=== PATIENT | male | born 1980 | race Hispanic/Latino ===

== ENCOUNTER 2016-12-23 21:35 | Emergency (ER) | payer BC, OTHER ==
--- NOTE | 2016-12-23 21:48 | EDM.PDOC ---
ED HISTORY OF PRESENT ILLNESS - General Chief Complaint: Cardiovascular Problem Stated Complaint: FEET SWOLLEN Time Seen by Provider: 12/23/16 21:43 Source of Information: Reports: Patient History Limitations: Reports: No limitations - History of Present Illness INITIAL COMMENTS - FREE TEXT/NARRATIVE: few days h/o worsening leg swelling, denies trauma, occ' SOB, no chest pain. - Related Data Allergies/ADRs: Allergies Allergy/AdvReac Type Severity Reaction Status Date / Time No Known Allergies Allergy Verified 12/23/16 21:40 Home Meds: Home Meds . [No Known Home Meds] 06/26/15 [History] Past Medical History - Past Health History Medical/Surgical History: Denies Medical/Surgical History Social & Family History - Tobacco Use Smoking Status *Q: Never Smoker - Caffeine Use Caffeine Use: Reports: Soda - Recreational Drug Use Recreational Drug Use: No ED ROS GENERAL - Review of Systems Review Of Systems: ROS reveals no pertinent complaints other than HPI. ED EXAM, GENERAL - Physical Exam Exam: See Below Exam Limited By: No limitations General Appearance: alert, WD/WN, no apparent distress Ears: hearing grossly normal Throat/Mouth: Normal voice, No airway compromise Head: atraumatic Neck: supple, non-tender Respiratory/Chest: no respiratory distress Cardiovascular: regular rate, rhythm GI/Abdominal: soft, non tender Extremities: pedal edema, other (2 bilateral+) Neurological: alert, oriented, normal cognition, normal gait, no motor/sensory deficits Psychiatric: normal affect, normal mood Skin Exam: Warm, Dry Lymphatic: no adenopathy Course - Vital Signs Last Recorded V/S: Last Vital Signs Temp 36.3 C 12/23/16 21:41 Pulse 117 H 12/23/16 21:41 Resp 20 12/23/16 21:41 BP 102/71 12/23/16 21:41 Pulse Ox 100 12/23/16 21:41 - Orders/Labs/Meds Orders: Active Orders 24 hr Category Date Time Status EKG 12 Lead [EKG Documentation Completion] [RC] STAT Care 12/23/16 22:17 Active Potassium Chloride [KCl 10 MEQ in Water 100 ML] 10 meq Med 12/23/16 22:44 Ordered Premix Bag 1 bag IV ONETIME Medication Orders Potassium Chloride 10 meq/ (Premix) 100 mls @ 100 mls/hr IV ONETIME ONE Stop: 12/23/16 23:43 Last Admin: 12/23/16 22:50 Dose: 100 mls/hr Labs: Laboratory Tests 12/23/16 12/23/16 12/23/16 Range/Units 21:52 21:52 21:52 WBC 7.9 (5.0-10.0) 10^3/uL RBC 4.77 (4.6-6.2) 10^6/uL Hgb 13.2 L (14.0-18.0) g/dL Hct 40.4 (40.0-54.0) % MCV 84.7 (80-100) fL MCH 27.7 (27.0-34.0) pg MCHC 32.7 L (33.0-35.0) g/dL Plt Count 380 (150-450) 10^3/uL Neut % (Auto) 74.3 (42.2-75.2) % Lymph % (Auto) 16.3 L (20.5-50.1) % [place] % (Auto) 6.2 (2-8) % Eos % (Auto) 2.7 (1.0-3.0) % Baso % (Auto) 0.5 (0.0-1.0) % Sodium 134 L (135-145) mmol/L Potassium 2.9 L (3.6-5.0) mmol/L Chloride 98 L (101-111) mmol/L Carbon Dioxide 25.0 (21.0-31.0) mmol/L Anion Gap 13.9 BUN 43 H (7-18) mg/dL Creatinine 2.4 H (0.6-1.3) mg/dL Est Cr Clr Drug Dosing 38.40 mL/min Estimated GFR (MDRD) 31 BUN/Creatinine Ratio 17.91 Glucose 130 H (74-105) mg/dL Calcium 8.6 (8.4-10.2) mg/dl Total Bilirubin 1.7 H (0.2-1.0) mg/dL AST 37 (10-42) IU/L ALT 35 (10-60) IU/L Alkaline Phosphatase 86 (42-121) IU/L Troponin I 0.04 H* (0.00-0.02) ng/ml B-Natriuretic Peptide 2050 H (0-100) pg/ml Total Protein 6.7 (6.7-8.2) g/dl Albumin 3.3 (3.2-5.5) g/dl Globulin 3.4 Albumin/Globulin Ratio 0.97 Meds: Medications Generic Name Dose Route Start Last Admin Trade Name Freq PRN Reason Stop Dose Admin Potassium Chloride 10 meq/ 100 mls @ 100 mls/hr 12/23/16 22:44 12/23/16 22:50 Premix IV 12/23/16 23:43 100 mls/hr ONETIME ONE Administration Discontinued Medications Generic Name Dose Route Start Last Admin Trade Name Freq PRN Reason Stop Dose Admin Furosemide 20 mg 12/23/16 22:43 12/23/16 22:49 Lasix IVPUSH 12/23/16 22:44 20 mg ONETIME ONE Administration - Re-Assessments/Exams Free Text/Narrative Re-Assessment/Exam: 12/23/16 22:54 results discussed with Pt and case discussed with Dr Chin @ who kindly accepted Pt. Departure - Departure Time of Disposition: 22:55 Disposition: DC/Tfer to [facility] 02 Reason for Transfer *Q: Other Condition: good Clinical Impression: Elevated troponin, Elevated brain natriuretic peptide (BNP) level, Hypokalemia , Renal insufficiency, Pulmonary hypertensive venous disease CHF (congestive heart failure) Qualifiers: Congestive heart failure type: unspecified congestive heart failure type Congestive heart failure chronicity: acute Qualified Code(s): I50.9 - Heart failure, unspecified Forms: Interfacility Transfer EMTALA - My Orders Last 24 Hours: My Active Orders 12/23/16 22:17 EKG 12 Lead [EKG Documentation Completion] [RC] STAT 12/23/16 22:44 Potassium Chloride [KCl 10 MEQ in Water 100 ML] 10 meq Premix Bag 1 bag IV ONETIME - Assessment/Plan Last 24 Hours: My Active Orders 12/23/16 22:17 EKG 12 Lead [EKG Documentation Completion] [RC] STAT 12/23/16 22:44 Potassium Chloride [KCl 10 MEQ in Water 100 ML] 10 meq Premix Bag 1 bag IV ONETIME
[2016-12-23] MEDS ORDERED: Furosemide 20 MG/2 ML VIAL IVPUSH ONE (22:43)
[2016-12-23] MEDS ORDERED: Potassium Chloride 10 MEQ in Premix Bag 1 BAG IV ONE (22:44)
[2016-12-23] MEDS ORDERED: Nitroglycerin 0.4 MG Tab.SL SL ONE (22:58)
[2016-12-23] MEDS ORDERED: Metoprolol Tartrate 5 MG/5 ML SDV IVPUSH ONE ×2 (23:00→23:39)
[2016-12-23] MEDS ORDERED: LORazepam 2 MG/ML Syringe IVPUSH ONE (23:24)
[2016-12-23 23:43] VITALS: BP 193/151
--- NOTE | 2016-12-25 10:31 | EKG ---
12/23/2016 - DOTTIE FONTENOT - This 12-lead EKG shows sinus tachycardia with a ventricular rate of 113. Normal axis. Borderline prolonged QT interval. No acute ST-segment or T-wave changes. [facility] /[id number]
== END 2016-12-23 23:50 ==
LOC: DL.ED 21:35
DX: I50.9 Heart failure, unspecified (principal); I27.0 Primary pulmonary hypertension; N28.9 Disorder of kidney and ureter, unspecified; E87.6 Hypokalemia
CPT/HCPCS: 36415; 71020; 80053; 81001; 83880; 84484; 85025; 93005; 96365; 96375; 96376; 99285; J1940; J2060; J3480; J3490

== ENCOUNTER 2017-01-01 14:52 | Emergency (ER) | payer OTHER ==
[2017-01-01] MEDS ORDERED: Sodium Chloride 0.9% 10 ML Syringe FLUSH PRN (15:10)
[2017-01-01 15:55] LABS: CHLORIDE,CL 99 mmol/L (101-111); SODIUM,NA 134 mmol/L (135-145)
[2017-01-01 16:18] VITALS: BP 97/74
--- NOTE | 2017-01-01 17:07 | EDM.PDOC ---
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 Patient began feeling lightheaded and nauseated due to the heat. Then he felt cold. He denies chest pain, SOB or syncope. Admits to near syncope with "tunnel vision" for a few seconds, during which time co-worker reported patient seemed confused. Once out of the hot kitchen he quickly felt completely back to normal. Patient admitted at [facility] for CHF from 12/24/16 to . He has appointment with otolaryngology physician in 4 days. Patient symptom free on arrival to ER. Symptom Onset Date: 01/01/17 Event Occurred (Where): work Event (Witnessed/Unwitnessed): witnessed Location: Reports: generalized Severity: moderate Pre Event Symptom(s): Reports: no other symptoms Event Symptoms: Reports: no other symptoms - Related Data Allergies/ADRs: Allergies Allergy/AdvReac Type Severity Reaction Status Date / Time No Known Allergies Allergy Verified 01/01/17 16:06 Home Meds: Home Meds Aspirin/Calcium Carbonate/Mag [Aspirin Buffered 325 mg Tab] 325 mg PO DAILY 02/12 [History] Carvedilol 6.25 mg PO BID 01/01/17 [History] Furosemide 20 mg PO DAILY 01/01/17 [History] NIFEdipine [Nifedipine ER] 60 mg PO 01/01/17 [History] Potassium Chloride 40 meq PO DAILY 01/01/17 [History] Spironolactone 50 mg PO DAILY 01/01/17 [History] Past Medical History Cardiovascular History: Reports: Heart Failure, Hypertension (malignant) Genitourinary History: Reports: Other (see below) (chronic kidney disease.) Social & Family History - Family History Family Medical History: Noncontributory - Tobacco Use Smoking Status *Q: Never Smoker - Caffeine Use Caffeine Use: Reports: Soda - Recreational Drug Use Recreational Drug Use: No - Living Situation & Occupation Living situation: Reports: , with family Occupation: employed ED ROS GENERAL - Review of Systems Review Of Systems: ROS reveals no pertinent complaints other than HPI. - Physical Exam Exam: See Below Exam Limited By: No limitations General Appearance: alert, WD/WN, no apparent distress Eye Exam: bilateral eye: normal inspection Ears: normal external exam, normal canal, hearing grossly normal, normal TMs Nose: normal inspection, normal mucosa, no blood Throat/Mouth: Normal inspection, Normal lips, Normal teeth, Normal gums, Normal oropharynx, Normal voice, No airway compromise Head Exam: atraumatic, normocephalic Neck: normal inspection, supple, non-tender, full range of motion Respiratory/Chest: no respiratory distress, lungs clear, normal breath sounds, no accessory muscle use, chest non-tender Cardiovascular: normal peripheral pulses, regular rate, rhythm, no edema, no gallop, no JVD, no murmur, no rub GI/Abdominal: normal bowel sounds, soft, non tender, no organomegaly, no distention, no abnormal bruit, no mass Neuro Exam (Abbreviated): alert, oriented, CN II-XII intact, normal cognition, normal gait, normal reflexes, no motor/sensory deficits Back Exam: normal inspection, full range of motion, NT Extremities: normal inspection, normal range of motion, non-tender, no pedal edema, normal capillary refill Psychiatric: normal affect, normal mood Skin Exam: Warm, Dry, Intact, Normal color, No rash EKG INTERPRETATION EKG Date: 01/01/17 Time: 15:10 Rhythm: other (sinus rhythm) Rate (beats/min): 64 [place]: normal P-wave: present QRS: other (left ventricular hypertrophy) ST-T: normal QT: normal Course - Vital Signs Last Recorded V/S: Last Vital Signs Temp 36.3 C 01/01/17 16:08 Pulse 70 01/01/17 16:08 Resp 18 01/01/17 16:08 BP 97/74 01/01/17 16:08 Pulse Ox 100 01/01/17 16:08 - Orders/Labs/Meds Orders: Active Orders 24 hr Category Date Time Status Patient Status Manage Transfer [TRANSFER] Routine ADT 01/01/17 15:47 Ordered EKG 12 Lead [EKG Documentation Completion] [RC] STAT Care 01/01/17 15:09 Active Peripheral IV Care [RC] . DIRECTED Care 01/01/17 15:10 Active Chest 1V Frontal [CR] Stat Exams 01/01/17 15:09 Taken Head wo Cont [CT] Urgent Exams 01/01/17 15:10 Taken Sodium Chloride 0.9% [Saline Flush] Med 01/01/17 15:10 Active 10 ml FLUSH ASDIRECTED PRN Peripheral IV Insertion Adult [OM.PC] Stat Oth 01/01/17 15:08 Ordered Medication Orders Sodium Chloride (Saline Flush) 10 ml FLUSH ASDIRECTED PRN PRN Reason: Keep Vein Open Last Admin: 01/01/17 16:24 Dose: 10 ml Labs: Laboratory Tests 01/01/17 01/01/17 01/01/17 Range/Units 15:31 15:31 15:31 WBC 8.0 (5.0-10.0) 10^3/uL RBC 5.01 (4.6-6.2) 10^6/uL Hgb 14.0 (14.0-18.0) g/dL Hct 43.4 (40.0-54.0) % MCV 86.6 (80-100) fL MCH 27.9 (27.0-34.0) pg MCHC 32.3 L (33.0-35.0) g/dL Plt Count 365 (150-450) 10^3/uL Neut % (Auto) 81.4 H (42.2-75.2) % Lymph % (Auto) 9.0 L (20.5-50.1) % [place] % (Auto) 6.1 (2-8) % Eos % (Auto) 2.6 (1.0-3.0) % Baso % (Auto) 0.9 (0.0-1.0) % PT 11.2 (9.0-12.0) SEC INR 1.1 (0.9-1.2) APTT 23.6 (22.0-34.0) SEC Sodium 134 L (135-145) mmol/L Potassium 4.6 (3.6-5.0) mmol/L Chloride 99 L (101-111) mmol/L Carbon Dioxide 29.0 (21.0-31.0) mmol/L Anion Gap 10.6 BUN 41 H (7-18) mg/dL Creatinine 2.1 H (0.6-1.3) mg/dL Est Cr Clr Drug Dosing TNP Estimated GFR (MDRD) 36 BUN/Creatinine Ratio 19.52 Glucose 112 H (74-105) mg/dL Calcium 9.3 (8.4-10.2) mg/dl Total Bilirubin 1.0 (0.2-1.0) mg/dL AST 38 (10-42) IU/L ALT 50 (10-60) IU/L Alkaline Phosphatase 73 (42-121) IU/L Troponin I 0.03 H* (0.00-0.02) ng/ml B-Natriuretic Peptide 487 H (0-100) pg/ml Total Protein 7.3 (6.7-8.2) g/dl Albumin 3.5 (3.2-5.5) g/dl Globulin 3.8 Albumin/Globulin Ratio 0.92 Urine Color (YELLOW) Urine Appearance (CLEAR) Urine pH (5.0-9.0) Ur Specific [place] (1.005-1.030) Urine Protein (NEGATIVE) Urine Glucose (UA) (NEGATIVE) Urine Ketones (NEGATIVE) Urine Occult Blood (NEGATIVE) Urine Nitrite (NEGATIVE) Urine Bilirubin (NEGATIVE) Urine Urobilinogen (0.2-1.0) mg/dL Ur Leukocyte Esterase (NEGATIVE) Urine RBC /HPF Urine WBC (0-5/HPF) /HPF Urine Mucus /LPF Urine Opiates Screen (NEGATIVE) Ur Oxycodone Screen (NEGATIVE) Urine Methadone Screen (NEGATIVE) Ur Barbiturates Screen (NEGATIVE) U Tricyclic Antidepress (NEGATIVE) Ur Phencyclidine Scrn (NEGATIVE) Ur Amphetamine Screen (NEGATIVE) U Methamphetamines Scrn (NEGATIVE) Urine MDMA Screen (NEGATIVE) U Benzodiazepines Scrn (NEGATIVE) Urine Cocaine Screen (NEGATIVE) U Marijuana (THC) Screen (NEGATIVE) 01/01/17 01/01/17 Range/Units 15:56 15:56 WBC (5.0-10.0) 10^3/uL RBC (4.6-6.2) 10^6/uL Hgb (14.0-18.0) g/dL Hct (40.0-54.0) % MCV (80-100) fL MCH (27.0-34.0) pg MCHC (33.0-35.0) g/dL Plt Count (150-450) 10^3/uL Neut % (Auto) (42.2-75.2) % Lymph % (Auto) (20.5-50.1) % [place] % (Auto) (2-8) % Eos % (Auto) (1.0-3.0) % Baso % (Auto) (0.0-1.0) % PT (9.0-12.0) SEC INR (0.9-1.2) APTT (22.0-34.0) SEC Sodium (135-145) mmol/L Potassium (3.6-5.0) mmol/L Chloride (101-111) mmol/L Carbon Dioxide (21.0-31.0) mmol/L Anion Gap BUN (7-18) mg/dL Creatinine (0.6-1.3) mg/dL Est Cr Clr Drug Dosing Estimated GFR (MDRD) BUN/Creatinine Ratio Glucose (74-105) mg/dL Calcium (8.4-10.2) mg/dl Total Bilirubin (0.2-1.0) mg/dL AST (10-42) IU/L ALT (10-60) IU/L Alkaline Phosphatase (42-121) IU/L Troponin I (0.00-0.02) ng/ml B-Natriuretic Peptide (0-100) pg/ml Total Protein (6.7-8.2) g/dl Albumin (3.2-5.5) g/dl Globulin Albumin/Globulin Ratio Urine Color Yellow (YELLOW) Urine Appearance Slightly cloudy (CLEAR) Urine pH 7.0 (5.0-9.0) Ur Specific [place] 1.015 (1.005-1.030) Urine Protein Negative (NEGATIVE) Urine Glucose (UA) Negative (NEGATIVE) Urine Ketones Negative (NEGATIVE) Urine Occult Blood Trace-intact H (NEGATIVE) Urine Nitrite Negative (NEGATIVE) Urine Bilirubin Negative (NEGATIVE) Urine Urobilinogen 0.2 (0.2-1.0) mg/dL Ur Leukocyte Esterase Negative (NEGATIVE) Urine RBC 5-10 H /HPF Urine WBC 0-5 (0-5/HPF) /HPF Urine Mucus Rare /LPF Urine Opiates Screen Negative (NEGATIVE) Ur Oxycodone Screen Negative (NEGATIVE) Urine Methadone Screen Negative (NEGATIVE) Ur Barbiturates Screen Negative (NEGATIVE) U Tricyclic Antidepress Negative (NEGATIVE) Ur Phencyclidine Scrn Negative (NEGATIVE) Ur Amphetamine Screen Negative (NEGATIVE) U Methamphetamines Scrn Negative (NEGATIVE) Urine MDMA Screen Negative (NEGATIVE) U Benzodiazepines Scrn Negative (NEGATIVE) Urine Cocaine Screen Negative (NEGATIVE) U Marijuana (THC) Screen Negative (NEGATIVE) Meds: Medications Generic Name Dose Route Start Last Admin Trade Name Freq PRN Reason Stop Dose Admin Sodium Chloride 10 ml 01/01/17 15:10 01/01/17 16:24 Saline Flush FLUSH 10 ml ASDIRECTED PRN Administration Keep Vein Open - Radiology Interpretation Free Text/Narrative:: Chest x-ray: no acute pulmonary findings, cardiac silhouette is mildly enlarged and no significant interval change when compared to 12/23/[address] head: No acute intracranial process per rad report. Departure - Departure Time of Disposition: 16:51 Disposition: Home, Self-Care 01 Condition: fair Clinical Impression: Heat exhaustion Qualifiers: Encounter type: initial encounter Qualified Code(s): T67.5XXA - Heat exhaustion , unspecified, initial encounter Chronic CHF Qualifiers: Congestive heart failure type: combined Qualified Code(s): I50.42 - Chronic combined systolic (congestive) and diastolic (congestive) heart failure Chronic kidney disease Qualifiers: Chronic kidney disease stage: unspecified stage Qualified Code(s): N18.9 - Chronic kidney disease, unspecified Instructions: Heat Exhaustion Information, Heart Failure, [id number] Forms: ED Department Discharge Additional Instructions: Rest. Continue current meds as prescribed. Follow up in clinic this Tuesday as scheduled. Return to ER if worse at any time. - My Orders Last 24 Hours: My Active Orders 01/01/17 15:08 Peripheral IV Insertion Adult [OM.PC] Stat 01/01/17 15:09 EKG 12 Lead [EKG Documentation Completion] [RC] STAT Chest 1V Frontal [CR] Stat 01/01/17 15:10 Peripheral IV Care [RC] . DIRECTED Head wo Cont [CT] Urgent Sodium Chloride 0.9% [Saline Flush] 10 ml FLUSH ASDIRECTED PRN - Assessment/Plan Last 24 Hours: My Active Orders 01/01/17 15:08 Peripheral IV Insertion Adult [OM.PC] Stat 01/01/17 15:09 EKG 12 Lead [EKG Documentation Completion] [RC] STAT Chest 1V Frontal [CR] Stat 01/01/17 15:10 Peripheral IV Care [RC] . DIRECTED Head wo Cont [CT] Urgent Sodium Chloride 0.9% [Saline Flush] 10 ml FLUSH ASDIRECTED PRN I have read and agree with the documentation that has been completed regarding this visit. By signing this record, I attest that the documentation was completed in my physical presence and is an accurate record of the encounter.
--- NOTE | 2017-01-23 14:34 | EKG ---
01/01/2017 - DOTTIE FONTENOT - EKG per my reading, shows sinus rhythm with no acute ST changes. [facility] /[id number]
== END 2017-01-01 17:06 | disposition home or self-care (01) ==
LOC: DL.ED 14:52
DX: T67.5XXA Heat exhaustion, unspecified, initial encounter (principal); I13.0 Hypertensive heart and chronic kidney disease with heart failure and stage 1 through stage 4 chronic kidney disease, or unspecified chronic kidney disease; I50.42 Chronic combined systolic (congestive) and diastolic (congestive) heart failure; N18.9 Chronic kidney disease, unspecified; Z79.82 Long term (current) use of aspirin; Z79.899 Other long term (current) drug therapy; Y99.0 Civilian activity done for income or pay
CPT/HCPCS: 36415; 70450; 71010; 80053; 80305; 81001; 83880; 84484; 85025; 85610; 85730; 93005; 99285; J7050

== ENCOUNTER 2019-09-12 12:23 | Emergency (ER) | payer OTHER ==
[2019-09-12 13:34] LABS: ANION GAP 15.3
--- NOTE | 2019-09-12 13:51 | CR ---
EXAMINATION: Chest 2V SEX: Male AGE: 39 years CLINICAL HISTORY: 39-year-old male short of breath (SOB). Comparison exam 17 July 2018. INTERPRETATION: Abnormal. 1. *Chronic CARDIOMYOPATHY with diffuse pulmonary vascular congestion (cephalization) but no new alveolar edema or dependent pleural fluid accumulation (effusions) when compared directly back to 17 July 2019 films. 2. No new lung mass or hilar lymphadenopathy. 3. No focal lobar consolidation i.e. no infiltrate, atelectasis or collapse. 4. No pneumothorax or pneumomediastinum. No free subdiaphragmatic air. 5. Hood thorax unremarkable. CONCLUSION: Abnormally large cardiac silhouette and mild venous congestion (chronic). No additional signs of heart failure or new infiltrate/atelectasis since 17 July 2018.
[2019-09-12] MEDS ORDERED: Furosemide 40 MG/4 ML VIAL IVPUSH ONE (13:56)
[2019-09-12] MEDS ORDERED: Metoprolol Tartrate 5 MG/5 ML SDV IVPUSH ONE ×2 (13:57→14:38)
[2019-09-12 14:47] VITALS: BP 187/145; PULSE 94
--- NOTE | 2019-09-12 14:52 | EDM.PDOC ---
ED HPI GENERAL MEDICAL PROBLEM - General Chief Complaint: Cardiovascular Problem Stated Complaint: HYPERTENSION Time Seen by Provider: 09/12/19 13:30 Source of Information: Reports: Patient, Provider History Limitations: Reports: No Limitations - History of Present Illness INITIAL COMMENTS - FREE TEXT/NARRATIVE: This 39 yo male patient was sent to the ED from the [facility] due to a 3 day history of increased shortness of breath. The patient reports he has not taken his prescription medications for the past 3 weeks. The patient reports he has had difficulties getting into his primary care facility for refill of medications. Duration: Day(s):, Constant, Getting Worse Location: Reports: Chest Quality: Reports: Other Severity: Moderate Improves with: Reports: None Worsens with: Reports: None Context: Reports: Other Associated Symptoms: Reports: Shortness of Breath - Related Data Allergies Allergy/AdvReac Type Severity Reaction Status Date / Time No Known Allergies Allergy Verified 09/12/19 13:03 Home Meds: Home Meds Aspirin/Calcium Carbonate/Mag [Aspirin Buffered 325 mg Tab] 325 mg PO DAILY 02/12 [History] Furosemide 20 mg PO DAILY 01/01/17 [History] NIFEdipine [Nifedipine ER] 60 mg PO DAILY 01/01/17 [History] Potassium Chloride 40 meq PO DAILY 01/01/17 [History] Spironolactone 50 mg PO DAILY 01/01/17 [History] carvediloL [Carvedilol] 6.25 mg PO BID 01/01/17 [History] Past Medical History - Past Health History Medical/Surgical History: Denies Medical/Surgical History HEENT History: Reports: None Cardiovascular History: Reports: Heart Failure, Hypertension Respiratory History: Reports: None Gastrointestinal History: Reports: None Genitourinary History: Reports: Other (See Below) Other Genitourinary History: states he has some problems with his kidney but does not know exactly what it is Musculoskeletal History: Reports: None Neurological History: Reports: None Psychiatric History: Reports: None Endocrine/Metabolic History: Reports: None Hematologic History: Reports: None Immunologic History: Reports: None Oncologic (Cancer) History: Reports: None Dermatologic History: Reports: None - Infectious Disease History Infectious Disease History: Reports: None - Past Surgical History Head Surgeries/Procedures: Reports: None Social & Family History - Family History Family Medical History: Noncontributory - Tobacco Use Smoking Status *Q: Never Smoker Second Hand Smoke Exposure: No - Caffeine Use Caffeine Use: Reports: None - Recreational Drug Use Recreational Drug Use: No - Living Situation & Occupation Living situation: Reports: , with Family Occupation: Employed ED ROS GENERAL - Review of Systems Review Of Systems: Comprehensive ROS is negative, except as noted in HPI. ED EXAM, GENERAL - Physical Exam Exam: See Below Exam Limited By: No Limitations General Appearance: Alert, WD/WN, Moderate Distress Eye Exam: Bilateral Eye: EOMI, Normal Inspection, PERRL Ears: Normal External Exam, Normal Canal, Hearing Grossly Normal, Normal TMs Nose: Normal Inspection, Normal Mucosa, No Blood Throat/Mouth: Normal Inspection, Normal Lips, Normal Teeth, Normal Gums, Normal Oropharynx, Normal Voice, No Airway Compromise Head: Atraumatic, Normocephalic Neck: Normal Inspection, Supple, Non-Tender, Full Range of Motion Respiratory/Chest: No Respiratory Distress, Lungs Clear Cardiovascular: No Gallop, No JVD, No Murmur, Tachycardia GI/Abdominal: Normal Bowel Sounds, Soft, Non-Tender, No Organomegaly, No Distention, No Abnormal Bruit, No Mass (Male) Exam: Deferred Rectal (Males) Exam: Deferred Back Exam: Normal Inspection, Full Range of Motion, NT Extremities: Normal Inspection, Normal Range of Motion, Non-Tender, Normal Capillary Refill, No Pedal Edema Neurological: Alert, Oriented, CN II-XII Intact, Normal Cognition, Normal Gait, Normal Reflexes, No Motor/Sensory Deficits Psychiatric: Normal Affect, Normal Mood Skin Exam: Warm, Dry, Intact, Normal Color, No Rash Lymphatic: No Adenopathy Course - Vital Signs Last Recorded V/S: Last Vital Signs Temp 36.6 C 09/12/19 12:56 Pulse 99 09/12/19 14:14 Resp 36 H 09/12/19 12:56 BP 194/141 H 09/12/19 14:14 Pulse Ox 99 09/12/19 12:56 - Orders/Labs/Meds Orders: Active Orders 24 hr Category Date Time Status EKG Documentation Completion [RC] URGENT Care 09/12/19 13:01 Active Labs: Laboratory Tests 09/12/19 09/12/19 09/12/19 Range/Units 13:09 13:09 13:09 WBC 8.1 (5.0-10.0) 10^3/uL RBC 5.32 (4.6-6.2) 10^6/uL Hgb 15.8 D (14.0-18.0) g/dL Hct 46.3 (40.0-54.0) % MCV 87.0 (80-100) fL MCH 29.7 (27.0-34.0) pg MCHC 34.1 (33.0-35.0) g/dL Plt Count 377 (150-450) 10^3/uL Neut % (Auto) 77.2 H (42.2-75.2) % Lymph % (Auto) 12.2 L (20.5-50.1) % Rhea % (Auto) 5.5 (2-8) % Eos % (Auto) 4.1 H (1.0-3.0) % Baso % (Auto) 1.0 (0.0-1.0) % Sodium 137 (135-145) mmol/L Potassium 3.3 L (3.6-5.0) mmol/L Chloride 102 (101-111) mmol/L Carbon Dioxide 23.0 (21.0-31.0) mmol/L Anion Gap 15.3 BUN 32 H (7-18) mg/dL Creatinine 2.6 H (0.6-1.3) mg/dL Est Cr Clr Drug Dosing 33.18 mL/min Estimated GFR (MDRD) 28 BUN/Creatinine Ratio 12.30 Glucose 103 (74-105) mg/dL Calcium 8.9 (8.4-10.2) mg/dl Total Bilirubin 1.4 H (0.2-1.0) mg/dL AST 21 (10-42) IU/L ALT 25 (10-60) IU/L Alkaline Phosphatase 50 (42-121) IU/L Troponin I 0.07 H* (0.00-0.02) ng/ml B-Natriuretic Peptide 1020 H (0-100) pg/ml Total Protein 7.3 (6.7-8.2) g/dl Albumin 3.9 (3.2-5.5) g/dl Globulin 3.4 Albumin/Globulin Ratio 1.15 Meds: Medications Discontinued Medications Generic Name Dose Route Start Last Admin Trade Name Freq PRN Reason Stop Dose Admin Furosemide 40 mg 09/12/19 13:56 09/12/19 14:22 Lasix IVPUSH 09/12/19 13:57 40 mg NOW ONE Administration Metoprolol Tartrate 2.5 mg 09/12/19 13:57 09/12/19 14:14 Lopressor IVPUSH 09/12/19 13:58 2.5 mg ONETIME ONE Administration Metoprolol Tartrate 2.5 mg 09/12/19 14:38 Lopressor IVPUSH 09/12/19 14:39 ONETIME ONE - Re-Assessments/Exams Free Text/Narrative Re-Assessment/Exam: 09/12/19 14:49 A call was placed to [facility] for a transfer, but they are on diversion due to number of patients. Departure - Departure Time of Disposition: 14:50 Disposition: DC/Tfer to [facility] 02 Reason for Transfer *Q: Other Condition: Serious Clinical Impression: Elevated troponin I level Renal failure (ARF), acute on chronic Qualifiers: Acute renal failure type: unspecified Chronic kidney disease stage: unspecified stage Qualified Code(s): N17.9 - Acute kidney failure, unspecified; N18.9 - Chronic kidney disease, unspecified Hypertension Qualifiers: Hypertension type: essential hypertension Qualified Code(s): I10 - Essential ( primary) hypertension CHF (congestive heart failure) Qualifiers: Heart failure type: unspecified Heart failure chronicity: chronic Qualified Code(s): I50.9 - Heart failure, unspecified Care Plan Goals: Discussed the patient's history, examination, lab, EKG, x-ray and treatments with Dr. Weiss ([facility]). Dr. Weiss accepted the patient for continued evaluation and further management. The patient will be transported by [facility]. Sepsis Event Note - Evaluation Sepsis Screening Result: No Definite Risk - Focused Exam Vital Signs: Vital Signs Temp Pulse Pulse Resp BP BP Pulse Ox 09/12/19 14:14 99 194/141 H 09/12/19 12:56 36.6 C 107 H 36 H 178/145 H 99 Date Exam was Performed: 09/12/19 Time Exam was Performed: 14:46 - My Orders Last 24 Hours: My Active Orders 09/12/19 13:01 EKG Documentation Completion [RC] URGENT - Assessment/Plan Last 24 Hours: My Active Orders 09/12/19 13:01 EKG Documentation Completion [RC] URGENT
== END 2019-09-12 15:47 ==
LOC: DL.ED 12:23
DX: I13.0 Hypertensive heart and chronic kidney disease with heart failure and stage 1 through stage 4 chronic kidney disease, or unspecified chronic kidney disease (principal); I50.9 Heart failure, unspecified; N17.9 Acute kidney failure, unspecified; N18.9 Chronic kidney disease, unspecified; R79.89 Other specified abnormal findings of blood chemistry; Z79.82 Long term (current) use of aspirin
CPT/HCPCS: 36415; 71046; 80053; 83880; 84484; 85025; 93005; 96374; 96375; 96376; 99285; J1940; J3490

== ENCOUNTER 2020-01-28 04:51 | Emergency (ER) | payer SELFPAY ==
[2020-01-28 04:57] VITALS: BP 124/73; PULSE 86
--- NOTE | 2020-01-28 05:06 | EDM.PDOC ---
ED HPI GENERAL MEDICAL PROBLEM - General Chief Complaint: Upper Extremity Injury/Pain Stated Complaint: PAIN IN LEFT HAND Time Seen by Provider: 01/28/20 05:04 Source of Information: Reports: Patient History Limitations: Reports: No Limitations - History of Present Illness INITIAL COMMENTS - FREE TEXT/NARRATIVE: ball hit left wrist/base of hand today. swollen tender Left Hand Pain Score (Numeric/FACES): 8 - Related Data Allergies Allergy/AdvReac Type Severity Reaction Status Date / Time No Known Allergies Allergy Verified 01/28/20 04:57 Home Meds: Home Meds Aspirin/Calcium Carbonate/Mag [Aspirin Buffered 325 mg Tab] 325 mg PO DAILY 02/12 [History] Furosemide 20 mg PO DAILY 01/01/17 [History] NIFEdipine [Nifedipine ER] 60 mg PO DAILY 01/01/17 [History] Potassium Chloride 40 meq PO DAILY 01/01/17 [History] Spironolactone 50 mg PO DAILY 01/01/17 [History] carvediloL [Carvedilol] 6.25 mg PO BID 01/01/17 [History] Past Medical History - Past Health History Medical/Surgical History: Denies Medical/Surgical History HEENT History: Reports: None Cardiovascular History: Reports: Heart Failure, Hypertension Respiratory History: Reports: None Gastrointestinal History: Reports: None Genitourinary History: Reports: Other (See Below) Other Genitourinary History: states he has some problems with his kidney but does not know exactly what it is Musculoskeletal History: Reports: None Neurological History: Reports: None Psychiatric History: Reports: None Endocrine/Metabolic History: Reports: None Hematologic History: Reports: None Immunologic History: Reports: None Oncologic (Cancer) History: Reports: None Dermatologic History: Reports: None - Infectious Disease History Infectious Disease History: Reports: None - Past Surgical History Head Surgeries/Procedures: Reports: None Social & Family History - Family History Family Medical History: Noncontributory - Tobacco Use Smoking Status *Q: Never Smoker Second Hand Smoke Exposure: No - Caffeine Use Caffeine Use: Reports: None - Recreational Drug Use Recreational Drug Use: No - Living Situation & Occupation Living situation: Reports: , with Family Occupation: Employed Review of Systems - Review of Systems Review Of Systems: Comprehensive ROS is negative, except as noted in HPI. ED EXAM, GENERAL - Physical Exam Exam: See Below Exam Limited By: No Limitations General Appearance: Alert, WD/WN, Mild Distress, Other (discomfort) Ears: Hearing Grossly Normal Throat/Mouth: Normal Voice, No Airway Compromise Head: Atraumatic Neck: Non-Tender, Full Range of Motion Respiratory/Chest: No Respiratory Distress Cardiovascular: Regular Rate, Rhythm GI/Abdominal: Soft, Non-Tender Extremities: Other (left wrist-hand swollen, tender R/P, NV wnl) Neurological: Alert, Oriented, Normal Cognition, Normal Gait, No Motor/Sensory Deficits Psychiatric: Tearful Skin Exam: Warm, Dry, Normal Color Lymphatic: No Adenopathy Course - Vital Signs Last Recorded V/S: Last Vital Signs Temp 35.6 C L 01/28/20 04:53 Pulse 86 01/28/20 04:53 Resp 16 01/28/20 04:53 BP 124/73 01/28/20 04:53 Pulse Ox 100 01/28/20 04:53 - Re-Assessments/Exams Free Text/Narrative Re-Assessment/Exam: 01/28/20 05:28 results discussed with pt. Departure - Departure Time of Disposition: 05:28 Disposition: Home, Self-Care 01 Condition: Good Clinical Impression: Contusion of left wrist, initial encounter - Discharge Information Instructions: Contusion, [id number] Forms: ED Department Discharge Additional Instructions: 1) wear brace for comfort 2) see clinic for MRI SCAN for occult fractures if not better by 3) take tylenol or motrin for discomfort Sepsis Event Note - Evaluation Sepsis Screening Result: No Definite Risk - Focused Exam Vital Signs: Vital Signs Temp Pulse Resp BP Pulse Ox 01/28/20 04:53 35.6 C L 86 16 124/73 100 Date Exam was Performed: 01/28/20 Time Exam was Performed: 05:28
--- NOTE | 2020-01-28 05:20 | CR ---
PROCEDURE INFORMATION: Exam: XR Left Wrist Exam date and time: 01/28/2020 5:11 AM Age: 39 years old Clinical indication: Other: Hit by softball/pain; Additional info: Injury TECHNIQUE: Imaging protocol: XR Left wrist. Views: 3 or more views. COMPARISON: No relevant prior studies available. FINDINGS: Bones/joints: Normal. Soft tissues: Normal. IMPRESSION: No acute findings.
== END 2020-01-28 05:33 | disposition home or self-care (01) ==
LOC: DL.ED 04:51
DX: S60.212A Contusion of left wrist, initial encounter (principal); I11.0 Hypertensive heart disease with heart failure; I50.9 Heart failure, unspecified; Z79.82 Long term (current) use of aspirin; Z79.899 Other long term (current) drug therapy; W21.07XA Struck by softball, initial encounter; Y93.64 Activity, baseball
CPT/HCPCS: 73110-LT; 99282; 99283-25

== ENCOUNTER 2020-02-22 15:45 | Emergency (ER) | payer SELFPAY ==
[2020-02-22] MEDS ORDERED: Colchicine 0.6 MG Tab PO ONE ×2 (15:46→19:32)
[2020-02-22 18:25] VITALS: BP 135/94; PULSE 89
--- NOTE | 2020-02-22 18:32 | EDM.PDOC ---
<Thais Flood - Last Filed: 02/22/20 18:31> ED HPI GENERAL MEDICAL PROBLEM - General Chief Complaint: Lower Extremity Injury/Pain Stated Complaint: LEFT FOOT PAIN SWELLING Time Seen by Provider: 02/22/20 19:08 Left Feet Pain Score (Numeric/FACES): 7 - Related Data Allergies Allergy/AdvReac Type Severity Reaction Status Date / Time No Known Allergies Allergy Verified 02/22/20 18:25 Home Meds: Home Meds Aspirin/Calcium Carbonate/Mag [Aspirin Buffered 325 mg Tab] 325 mg PO DAILY 01/01/17 [History] Furosemide 20 mg PO DAILY 01/01/17 [History] NIFEdipine [Nifedipine ER] 60 mg PO DAILY 01/01/17 [History] Potassium Chloride 40 meq PO DAILY 01/01/17 [History] Spironolactone 50 mg PO DAILY 01/01/17 [History] carvediloL [Carvedilol] 6.25 mg PO BID 01/01/17 [History] Acetaminophen [Tylenol] 650 mg PO ASDIRECTED PRN 02/22/20 [History] Past Medical History - Past Health History Medical/Surgical History: Denies Medical/Surgical History HEENT History: Reports: None Cardiovascular History: Reports: Heart Failure, Hypertension Respiratory History: Reports: None Gastrointestinal History: Reports: None Genitourinary History: Reports: Other (See Below) Other Genitourinary History: states he has some problems with his kidney but does not know exactly what it is Musculoskeletal History: Reports: None Neurological History: Reports: None Psychiatric History: Reports: None Endocrine/Metabolic History: Reports: None Hematologic History: Reports: None Immunologic History: Reports: None Oncologic (Cancer) History: Reports: None Dermatologic History: Reports: None - Infectious Disease History Infectious Disease History: Reports: None - Past Surgical History Head Surgeries/Procedures: Reports: None Social & Family History - Family History Family Medical History: Noncontributory - Tobacco Use Smoking Status *Q: Never Smoker Second Hand Smoke Exposure: No - Caffeine Use Caffeine Use: Reports: None - Recreational Drug Use Recreational Drug Use: No - Living Situation & Occupation Living situation: Reports: , with Family Occupation: Employed Departure - Departure Disposition: Home, Self-Care 01 Clinical Impression: Left foot pain Gout Qualifiers: Gout site: foot Gout etiology: unspecified cause Chronicity: acute Laterality: left Qualified Code(s): M10.9 - Gout, unspecified - Discharge Information Instructions: Low-Purine Eating Plan, How to Use Cold Therapy, [id number] Forms: ED Department Discharge Additional Instructions: May use ice to the area as tolerated RX: Colchicine, Prednisone Follow up with your primary care facility if no improvement Sepsis Event Note (ED) - Evaluation Sepsis Screening Result: No Definite Risk <Marybeth England - Last Filed: 02/22/20 20:16> ED HPI GENERAL MEDICAL PROBLEM - General Source of Information: Reports: Patient, RN, RN Notes Reviewed History Limitations: Reports: No Limitations - History of Present Illness INITIAL COMMENTS - FREE TEXT/NARRATIVE: Patient presents to ER with complaint of pain in the top of the left foot. Patient states the pain began this morning and he has been unable to bear much weight on the foot as he has quite a bit of pain in it with bearing weight. Patient denies any recent injury, states he did rolled the ankle a few months ago. Patient denies any fever or chills recently, denies any bug bites. Onset: Today Review of Systems - Review of Systems Review Of Systems: Comprehensive ROS is negative, except as noted in HPI. ED EXAM, GENERAL - Physical Exam Exam: See Below Exam Limited By: No Limitations General Appearance: Alert, WD/WN, Mild Distress Eye Exam: Bilateral Eye: EOMI, Normal Inspection Ears: Normal External Exam, Hearing Grossly Normal Nose: Normal Inspection Throat/Mouth: Normal Inspection, Normal Voice, No Airway Compromise Head: Atraumatic, Normocephalic Neck: Normal Inspection, Supple, Non-Tender, Full Range of Motion Respiratory/Chest: No Respiratory Distress, Lungs Clear, Normal Breath Sounds, No Accessory Muscle Use, Chest Non-Tender Cardiovascular: Normal Peripheral Pulses, Regular Rate, Rhythm, No Edema, No Gallop, No JVD, No Murmur, No Rub Peripheral Pulses: 2+: Dorsalis Pedis (L) GI/Abdominal: Normal Bowel Sounds, Soft, Non-Tender (Male) Exam: Deferred Rectal (Males) Exam: Deferred Back Exam: Normal Inspection, Full Range of Motion, NT Extremities: Normal Inspection, Normal Range of Motion, Non-Tender, No Pedal Edema, Normal Capillary Refill, Limited Range of Motion (swelling of top of left foot) Neurological: Alert, Oriented, CN II-XII Intact, Normal Cognition, Normal Reflexes, No Motor/Sensory Deficits Psychiatric: Normal Affect, Normal Mood Skin Exam: Warm, Dry, Intact, Normal Color, No Rash Lymphatic: No Adenopathy Course - Vital Signs Last Recorded V/S: Last Vital Signs Temp 97 F 02/22/20 18:21 Pulse 89 02/22/20 18:21 Resp 16 02/22/20 18:21 BP 135/94 H 02/22/20 18:21 Pulse Ox 100 02/22/20 18:21 - Orders/Labs/Meds Labs: Laboratory Tests 02/22/20 02/22/20 Range/Units 19:00 19:00 WBC 9.3 (5.0-10.0) 10^3/uL RBC 4.33 L (4.6-6.2) 10^6/uL Hgb 13.3 L D (14.0-18.0) g/dL Hct 40.2 (40.0-54.0) % MCV 92.8 D (80-100) fL MCH 30.7 (27.0-34.0) pg MCHC 33.1 (33.0-35.0) g/dL Plt Count 355 (150-450) 10^3/uL Neut % (Auto) 80.2 H (42.2-75.2) % Lymph % (Auto) 10.8 L (20.5-50.1) % Lanier % (Auto) 7.2 (2-8) % Eos % (Auto) 1.5 (1.0-3.0) % Baso % (Auto) 0.3 (0.0-1.0) % Sodium 136 (136-145) mmol/L Potassium 5.0 (3.5-5.1) mmol/L Chloride 100 (98-107) mmol/L Carbon Dioxide 26 (21-32) mmol/L Anion Gap 15.0 H (7-13) mEq/L BUN 48 H (7-18) mg/dL Creatinine 3.06 H (0.70-1.30) mg/dL Est Cr Clr Drug Dosing 26.08 mL/min Estimated GFR (MDRD) 23 Glucose 112 H (74-99) mg/dL Uric Acid 11.9 H (3.5-7.2) mg/dL Calcium 9.8 (8.5-10.1) mg/dL Meds: Medications Discontinued Medications Generic Name Dose Route Start Last Admin Trade Name Pa PRN Reason Stop Dose Admin Colchicine 1.2 mg 02/22/20 19:32 02/22/20 19:39 Colcrys PO 02/22/20 19:33 1.2 mg ONETIME ONE Administration Colchicine Confirm 02/22/20 19:39 02/22/20 19:57 Colcrys Administered 02/22/20 19:40 Not Given Dose 0.6 mg .ROUTE .STK-MED ONE Prednisone 40 mg 02/22/20 19:40 02/22/20 20:05 Prednisone PO 02/22/20 19:41 40 mg ONETIME ONE Administration - Radiology Interpretation Free Text/Narrative:: left foot xray: PROCEDURE INFORMATION: Exam: XR Left Foot Complete Exam date and time: 02/22/2020 6:45 PM Age: 39 years old Clinical indication: Other: Pain, unknown origin; Additional info: Cant stand on it TECHNIQUE: Imaging protocol: XR Left foot. Views: 3 or more views. COMPARISON: No relevant prior studies available. 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 There is a 6 mm posterior calcaneal spur. Soft tissues: Normal. IMPRESSION: 1. 6 mm posterior calcaneal spur. 2. 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 3. No sign of fracture or dislocation. Thank you for allowing us to participate in the care of your patient. Dictated and Authenticated by: Todd Swartz DO 02/22/2020 7:11 PM Central Time ([place] & [place]) See rad report Departure - Departure Time of Disposition: 20:00 Condition: Fair - Discharge Information *PRESCRIPTION DRUG MONITORING PROGRAM REVIEWED*: No *COPY OF PRESCRIPTION DRUG MONITORING REPORT IN PATIENT CASEY: No Sepsis Event Note (ED) - Focused Exam Vital Signs: Vital Signs Temp Pulse Resp BP Pulse Ox 02/22/20 18:21 97 F 89 16 135/94 H 100
--- NOTE | 2020-02-22 19:11 | CR ---
PROCEDURE INFORMATION: Exam: XR Left Foot Complete Exam date and time: 02/22/2020 6:45 PM Age: 39 years old Clinical indication: Other: Pain, unknown origin; Additional info: Cant stand on it TECHNIQUE: Imaging protocol: XR Left foot. Views: 3 or more views. COMPARISON: No relevant prior studies available. 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 There is a 6 mm posterior calcaneal spur. Soft tissues: Normal. IMPRESSION: 1. 6 mm posterior calcaneal spur. 2. 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 3. No sign of fracture or dislocation.
[2020-02-22] MEDS ORDERED: Colchicine 0.6 MG Tab ONE (19:39)
[2020-02-22] MEDS ORDERED: predniSONE 20 MG Tab PO ONE (19:40)
== END 2020-02-22 20:07 | disposition home or self-care (01) ==
LOC: DL.ED 15:45
DX: M10.9 Gout, unspecified (principal); I11.0 Hypertensive heart disease with heart failure; I50.9 Heart failure, unspecified; Z79.82 Long term (current) use of aspirin; Z79.899 Other long term (current) drug therapy
CPT/HCPCS: 36415; 73630; 80048; 84550; 85025; 99283; A9270; J7512